=== PATIENT | female | born 1995 | race Caucasian/White ===

== ENCOUNTER → 2018-05-04 22:11 | Observation (INO) ==
[2018-05-04 21:51] LABS: Basophils % 0.1 %; Eosinophils % 0.3 %; Hematocrit 40.3 % (35.3-44.9); Hemoglobin 13.5 g/dL (11.5-15.4); Immature Granulocytes % 0.4 % (0-4); Lymphocytes # 1.1 K/mcL (0.6-4.6); Lymphocytes % 7.8 %; Mean Corpuscular HGB Conc 33.5 g/dL (31.6-35.5); Mean Corpuscular Volume 89.6 fL (83.0-100.0); Mean Platelet Volume 11.6 fL (9.4-12.4); Monocytes # 0.7 K/mcL (0.0-1.3); Monocytes % 5.3 %; Neutrophils # 12.1 K/mcL (1.6-8.9); Platelet Count 180 K/mcL (140-400); Red Cell Distribution Width 12.4 % (11.5-14.5); Segmented Neutrophils % 86.1 %
[2018-05-04 21:56] LABS: Amphetamine Screen,Urine Negative ng/mL (Cutoff=1000); Barbiturate Screen,Urine Negative ng/mL (Cutoff=200); Benzodiazepines Screen,Urine Negative ng/mL (Cutoff=200); Cannabinoid Screen,Urine Negative ng/mL (Cutoff = 50); Cocaine Screen,Urine Negative ng/mL (Cutoff= 300); Opiate Screen,Urine Negative ng/mL (Cutoff=300); Phencyclidine Screen,Urine Negative ng/mL (Cutoff=25); Protein/Creatinine Ratio,Urine 0.15 mg/mg (0.00-0.20)
[2018-05-04 22:00] LABS: Alanine Aminotransferase 10 Units/L (7-52); Aspartate Amino Transferase 16 Units/L (13-39); BUN/Creatinine Ratio 26 (6-26); Blood Urea Nitrogen 12 mg/dL (6-20); Lactate Dehydrogenase 166 Units/L (140-271); Uric Acid 4.7 mg/dL (2.3-7.6); eGFR For Non-African Americans > 60 (> 60)
--- NOTE | 2018-05-04 22:09 | Discharge Summary ---
Date of Encounter: 05/04/18 Time of Encounter: 22:10 - Discharge Diagnosis (1) 37 weeks gestation of Priority: Primary Status: Acute Comments: Admitted to OBS for evaluation of elevated blood pressure. (2) NST (non-stress test) reactive Priority: Secondary Status: Acute Comments: FHR 150 bpm, moderate variability, +15x15 accels, no decels. (3) Hypertension affecting in third trimester Priority: Secondary Status: Acute Comments: BP initially 133/93 and 134/93. BP decreased to 135/83, 131/83 with patient sitting straight up in bed. PIH labs all WNL, Protein/creatinine ratio 0.15. To follow up with Dr. Maxwell as scheduled tomorrow, 05/05/18 at 3:00 pm. - Discharge Medications Home Medications: Vits96/Iron Fum/Folic [ Tablet] 1 each PO DAILY 05/04/18 [ History] Allergies/Adverse Reactions: 3 Allergy/AdvReac Type Severity Reaction Status Date / Time No Known Allergies Allergy Verified 05/04/18 21:04 Data Procedures and tests throughout hospitalization: Laboratory Tests 05/04/18 05/04/18 05/04/18 21:17 21:17 21:17 WBC 14.1 H RBC 4.50 Hgb 13.5 Hct 40.3 MCV 89.6 MCH 30.0 MCHC 33.5 RDW 12.4 Plt Count 180 MPV 11.6 Immature Gran % 0.4 Seg Neutrophils % 86.1 Lymphocytes % 7.8 Monocytes % 5.3 Eosinophils % 0.3 Basophils % 0.1 Neutrophils # 12.1 H Lymphocytes # 1.1 Monocytes # 0.7 Eosinophils # 0.0 Basophils # 0.0 BUN 12 Creatinine 0.47 L Est GFR ( Amer) > 60 Est GFR (Non-Af Amer) > 60 BUN/Creatinine Ratio 26 Uric Acid 4.7 AST 16 ALT 10 Lactate Dehydrogenase 166 Urine Creatinine 127 Protein/Creatinin Ratio 0.15 Urine Total Protein 19 H Urine Opiates Screen Ur Barbiturates Screen Ur Phencyclidine Scrn Ur Amphetamines Screen U Benzodiazepines Scrn Urine Cocaine Screen U Marijuana (THC) Screen Ur Drug Screen Interp 05/04/18 21:17 WBC RBC Hgb Hct MCV MCH MCHC RDW Plt Count MPV Immature Gran % Seg Neutrophils % Lymphocytes % Monocytes % Eosinophils % Basophils % Neutrophils # Lymphocytes # Monocytes # Eosinophils # Basophils # BUN Creatinine Est GFR ( Amer) Est GFR (Non-Af Amer) BUN/Creatinine Ratio Uric Acid AST ALT Lactate Dehydrogenase Urine Creatinine Protein/Creatinin Ratio Urine Total Protein Urine Opiates Screen Negative Ur Barbiturates Screen Negative Ur Phencyclidine Scrn Negative Ur Amphetamines Screen Negative U Benzodiazepines Scrn Negative Urine Cocaine Screen Negative U Marijuana (THC) Screen Negative Ur Drug Screen Interp See Below Labs on day of discharge: Labs from last 24 hours 05/04/18 05/04/18 05/04/18 21:17 21:17 21:17 WBC 14.1 H RBC 4.50 Hgb 13.5 Hct 40.3 MCV 89.6 MCH 30.0 MCHC 33.5 RDW 12.4 Plt Count 180 MPV 11.6 Immature Gran % 0.4 Seg Neutrophils % 86.1 Lymphocytes % 7.8 Monocytes % 5.3 Eosinophils % 0.3 Basophils % 0.1 Neutrophils # 12.1 H Lymphocytes # 1.1 Monocytes # 0.7 Eosinophils # 0.0 Basophils # 0.0 BUN 12 Creatinine 0.47 L Est GFR ( Amer) > 60 Est GFR (Non-Af Amer) > 60 BUN/Creatinine Ratio 26 Uric Acid 4.7 AST 16 ALT 10 Lactate Dehydrogenase 166 Urine Creatinine Protein/Creatinin Ratio Urine Total Protein Urine Opiates Screen Negative Ur Barbiturates Screen Negative Ur Phencyclidine Scrn Negative Ur Amphetamines Screen Negative U Benzodiazepines Scrn Negative Urine Cocaine Screen Negative U Marijuana (THC) Screen Negative Ur Drug Screen Interp See Below 05/04/18 21:17 WBC RBC Hgb Hct MCV MCH MCHC RDW Plt Count MPV Immature Gran % Seg Neutrophils % Lymphocytes % Monocytes % Eosinophils % Basophils % Neutrophils # Lymphocytes # Monocytes # Eosinophils # Basophils # BUN Creatinine Est GFR ( Amer) Est GFR (Non-Af Amer) BUN/Creatinine Ratio Uric Acid AST ALT Lactate Dehydrogenase Urine Creatinine 127 Protein/Creatinin Ratio 0.15 Urine Total Protein 19 H Urine Opiates Screen Ur Barbiturates Screen Ur Phencyclidine Scrn Ur Amphetamines Screen U Benzodiazepines Scrn Urine Cocaine Screen U Marijuana (THC) Screen Ur Drug Screen Interp Date of admission: 05/04/18 20:54 Discharging clinician: Milagros Brown Anticipated date of discharge: 05/04/18 - Patient Status Disposition: Home, Self-Care Condition: Good Functional capacity at discharge: independent ambulation Overall status at discharge: patient is back to baseline - Discharge Instructions Follow Up With: Bola Maxwell MD [Partnered Physician] - - Diet and Activity Activity: resume usual activities as tolerated Diet: regular diet Hospital Course [employer] Hospital course: Ayah is a 22 year-old at 37.3 weeks who presented to L&D with elevated blood pressures on her home monitor. States she spoke with Dr. Maxwell over the phone and he encouraged her to come in for evaluation. Labs were obtained and all returned WNL. Patient reports positive movement, denies vaginal bleeding and leakage of fluid. Reports frontal headache x 1 week, unrelieved by Tylenol. Reflexes 2+ bilat., no epigastric pain, no visual changes. Reactive NST and normal BP at time of discharge. To follow up with Dr. Maxwell tomorrow as scheduled. Time Attestation: Total time spent providing and/or coordinating discharge services: Time Spent: Less than 30 minutes Exam - Constitutional General appearance IM: A&O X 3, no acute distress - Respiratory Respiratory exam: Present: CTAB - Cardiovascular Cardiovascular exam IM: Present: RRR, +S1, +S2 - GI/Abdominal GI/Abdominal exam IM: normal bowel sounds, soft - Extremities Exam Extremities exam IM: Present: full ROM, normal capillary refill, normal inspection - Neurological Exam Neurological exam: alert, oriented X3, reflexes normal - VTE Reasons for not Prescribing Prophylaxis: Treatment not Indicated - Low risk for VTE
== END | disposition home or self-care (01) ==
LOC: 1NENULAB
PROVIDERS: ADMIT Registered Nurse; ATTEND Registered Nurse

== ENCOUNTER 2018-05-20 03:50 | Observation (INO) ==
[2018-05-20 04:36] LABS: Amphetamine Screen,Urine Negative ng/mL (Cutoff=1000); Barbiturate Screen,Urine Negative ng/mL (Cutoff=200); Benzodiazepines Screen,Urine Negative ng/mL (Cutoff=200); Cannabinoid Screen,Urine Negative ng/mL (Cutoff = 50); Cocaine Screen,Urine Negative ng/mL (Cutoff= 300); Opiate Screen,Urine Negative ng/mL (Cutoff=300); Phencyclidine Screen,Urine Negative ng/mL (Cutoff=25)
[2018-05-20] MEDS ORDERED: HydrOXYzine 100 MG/2 ML VIAL IM ONE (05:06)
[2018-05-20] MEDS ORDERED: *HR* Nalbuphine 10 MG/ML AMPUL IM ONE (05:10)
--- NOTE | 2018-05-20 06:30 | OB/GYN Progress Note ---
Date of Encounter: 05/20/18 Time of Encounter: 05:00 - Assessment and Plan (1) 39 weeks gestation of Status: Acute NST reactive Nubain IM for therapeutic rest - patient has driver guard to take her home Discharge home with labor precautions Follow up for scheduled IOL on Wednesday and PRN (2) Uterine contractions during Status: Acute (3) NST (non-stress test) reactive Status: Acute Subjective - Subjective Principal diagnosis: contractions Interval history: Ms Wilson was assessed by the nurses. She is a in her 39th week of that presents to triage with c/o contractions that began overnight last night and have progressively worsened. She states positive movement. She denies headache, vision changes, epigastric pain, leaking of fluid, vaginal bleeding, and vaginal discharge. She states positive movement. Antepartum ROS: movement normal, contractions Objective - Vital Signs Vital Signs: Intake and Output 05/19/18 05/19/18 05/20/18 15:59 23:59 07:59 Other: Weight 74.8 kg Patient Weight 05/20/18 23:59 Weight 74.8 kg - Exam FHR: auscultation normal, category 1
== END 2018-05-20 05:52 | disposition home or self-care (01) ==
LOC: 1NENULAB
PROVIDERS: ADMIT Advanced Practice Midwife; ATTEND Advanced Practice Midwife

== ENCOUNTER 2018-05-20 23:42 | Inpatient (IN) ==
[2018-05-20] MEDS ORDERED: Ringers Solution, Lactated 1,000 ML ONE (23:44)
[2018-05-20] MEDS ORDERED: Oxytocin 20 units/ LR 1000 mL 20 UNIT/1,000 ML BAG IVC ONE (23:44)
[2018-05-20] MEDS ORDERED: Metoclopramide 10 MG/2 ML VIAL IVP PRN (23:45)
[2018-05-20] MEDS ORDERED: Ondansetron 4 MG/2 ML VIAL IVP PRN (23:45)
[2018-05-20] MEDS ORDERED: Naloxone 0.4 MG/ML INJ IVP PRN (23:45)
[2018-05-20] MEDS ORDERED: Lidocaine 1% 20 ML MDV ID PRN (23:45)
[2018-05-20] MEDS ORDERED: Ringers Solution, Lactated 1,000 ML IVC SCH (23:45)
[2018-05-20] MEDS ORDERED: *HR* Nalbuphine 10 MG/ML AMPUL IVP PRN (23:45)
[2018-05-20] MEDS ORDERED: Famotidine 20 MG/2 ML VIAL IVP PRN (23:45)
[2018-05-21 00:11] LABS: Basophils % 0.1 %; Eosinophils % 0.1 %; Hematocrit 43.8 % (35.3-44.9); Hemoglobin 14.7 g/dL (11.5-15.4); Immature Granulocytes % 1.3 % (0-4); Lymphocytes # 1.1 K/mcL (0.6-4.6); Lymphocytes % 7.5 %; Mean Corpuscular HGB Conc 33.6 g/dL (31.6-35.5); Mean Corpuscular Hemoglobin 29.5 pg (28.0-33.3); Mean Corpuscular Volume 87.8 fL (83.0-100.0); Mean Platelet Volume 11.6 fL (9.4-12.4); Monocytes # 0.8 K/mcL (0.0-1.3); Monocytes % 5.4 %; Neutrophils # 12.3 K/mcL (1.6-8.9); Platelet Count 225 K/mcL (140-400); Red Blood Count 4.99 M/mcL (3.82-4.97); Red Cell Distribution Width 12.7 % (11.5-14.5); Segmented Neutrophils % 85.6 %
--- NOTE | 2018-05-21 00:44 | Anesthesia Evaluation PreOp ---
Addendum entered and electronically signed by Prakash Naylor CRNA 05/25/18 09:26: Addendum entered and electronically signed by Cammie Ryan CRNA 05/21/18 10:39: Infant Delivery Date: 05/21/18 Infant Delivery Time: 10:03 Original Note: Date of Encounter: 05/21/18 Time of Encounter: 00:42 - Past History Planned Operation: sara Cardiac History: Denies any Significant Hx Pulmonary History: Denies Any Significant HX, Former smoker SALES DEVELOPMENT MANAGER History: Denies Any Significant HX Other Medical History: GERD Anesthesia History: No Prior Anesthetic Complications, Past Anesthesia (knee x 3) : Yes Test: Positive Alcohol Use: none Drug use: none Medications and Allergies Vits96/Iron Fum/Folic [ Tablet] 1 each PO DAILY 05/04/18 [History] Acetaminophen [Tylenol 8 Hour] 1 tab PO PRN 05/20/18 [History] Allergy/AdvReac Type Severity Reaction Status Date / Time No Known Allergies Allergy Verified 05/20/18 23:21 - Meds/Allergy Pre-op Review Medications Reviewed: Yes Allergies Reviewed: Yes Beta Blockers on Current Med List: No Anesthesia Results - Labs 05/20/18 23:48 Anesthesia Exam 147/71 fht 149 Height: 5'6" Weight: 160 NPO (# of Hours): 3 Pain Scale: 8 Pain Scale Used: Numeric (1 - 10) - HEENT Pupil (Motor): Pupils equal Mallampati: II Teeth: Normal Oral Opening: Greater than 3 - SALES DEVELOPMENT MANAGER LOC: Oriented SALES DEVELOPMENT MANAGER Motor: Normal RUE, Normal LUE, Normal RLE, Normal LLE, Normal Face SALES DEVELOPMENT MANAGER Sensory: Normal: RUE, LUE, RLE, LLE, Face - Cardiac Rhythm: Regular Murmur: None - Pulmonary Breath Sounds: bilateral Clear Respiratory Effort: Symmetrical Anesthesia Assess/Plan ASA Score: 2 Level of consciousness: Cooperative Anesthetic Plan: Epidural Monitoring Plan: Standard Monitors Recovery Plan: Other (risks discussed questions answered, consented)
[2018-05-21] MEDS ORDERED: Epidural Premix (fent/bupiv) 110 ML EP SCH (00:45)
[2018-05-21] MEDS ORDERED: *HR* Ropivacaine/PF 0.2% 20 ML VIAL EP ONE (00:45)
[2018-05-21] MEDS ORDERED: *HR* FentaNYL (PF) 100 MCG/2 ML VIAL EP ONE (00:45)
[2018-05-21] MEDS ORDERED: Lidocaine -MPF 2% 5 ML VIAL ONE (00:47)
[2018-05-21] MEDS ORDERED: *HR* FentaNYL (PF) 100 MCG/2 ML VIAL ONE (00:47)
[2018-05-21] MEDS ORDERED: *HR* Ropivacaine/PF 0.2% 20 ML VIAL ONE (00:47)
--- NOTE | 2018-05-21 01:17 | Anesthesia Procedures ---
Date of Encounter: 05/21/18 Time of Encounter: 01:14 Procedures: Anesthesia - Epidural/Spinal Patient ID/Chart reviewed: Yes Patient examined: Yes OB Eval: Gestational age: 39 OB Eval: : 1 OB Eval: Hx Para: 0 OB Eval: Dilated at (cm): 8 OB Eval: Contractions: Non-stressed pattern Consent Obtained: Yes Supplemental Oxygen: None/Room Air Site Prep: Aseptic Technique, Sterile prep and drape, 0.5% Chlorhexidine/Alcohol Patient position: upright Local Anesthetic: Lidocaine 1% Amount of Local Anesthetic used: 3 Touhy Needle Gauge: 18 Touhy Needle Depth (cm): 7 Catheter Depth at Skin (cm): 15 Test Dose (1.5% Lido + Epi): Volume given (mls): 3 Test Dose Result: Negative Loading Dose: Fentanyl (mcg): 100 Loading Dose: Other: rop 0.2% 10cc Loading Dose Administered: Thru Touhy Needle Infusion Med: 0.125% Bupivacaine w/ 2 mcg/ml Fentanyl Infusion Rate (mls/hr): 15 (pcea 5 cc q30") Catheter Secured in Place: Tegaderm Interspace Used: L2-L3 Loss of Resistance (HARISH): Yes Blood: No CSF: No Paresthesia: No Procedure: aseptic, shanell well, VSS, effective Vitals + FHT's: 124/86 66 fht 144
[2018-05-21] MEDS ORDERED: EPHEDrine 50 MG/ML VIAL ONE (01:20)
--- NOTE | 2018-05-21 02:12 | OB/GYN History & Physical ---
Date of Encounter: 05/21/18 Time of Encounter: 02:10 Assessment and Plan (1) 39 weeks gestation of Current visit: No Status: Acute NST reactive, FHR baseline 140bpm. Admit for labor. Anticipate . History of Present Illness Chief complaint: Contractions HPI: Ms. Wilson is a 22 year old female presenting at 39w6d with contractions. She denies VB, LOF. Reports good FM. A Positive GBS negative Rubella Immune Serologies negative Past Med Surg Social Fam HX - Past Medical History Medical history: no medical history Psychiatric history: anxiety - Past Surgical History Surgical History: other Additional surgical history: right knee surgery - Social History Smoking Status: Former smoker Smokeless Tobacco Status: No Alcohol use: none Drug use: none - Family History Maternal Grandmother Adopted: No Family Member Ethnicity: Non- Living Status: Still Living Hx Family Cardiac Disorders: No Hx Family Respiratory Disorders: No Hx Family Cancer: No Hx Family GI Disorders: No Hx Family Genitourinary Disorders: No Hx Family Endocrine Disorder: Yes Hx Family Musculoskeletal Disorders: No Hx Family Neuromuscular Disorders: No Hx Family Neurologic Disorders: No Hx Family HEENT Disorders: No Hx Family Autoimmune Disorders: No Hx Family Reproductive Disorders: No Hx Family Psychosocial Disorders: No Hx Family Medical Disorders: No Obstetrical History - Pregnancies : 1 Para: 0 Medications and Allergies Vits96/Iron Fum/Folic [ Tablet] 1 each PO DAILY 05/04/18 [History] Acetaminophen [Tylenol 8 Hour] 1 tab PO PRN 05/20/18 [History] Allergy/AdvReac Type Severity Reaction Status Date / Time No Known Allergies Allergy Verified 05/20/18 23:21 Review of System OB All systems PM: reviewed and no additional remarkable complaints except as stated Exam - Constitutional Constitutional: well developed, well nourished, no acute distress, average body habitus - HEENT HEENT: Mucus Membranes Moist - Lungs Respiratory exam: CTAB - Cardiovascular Cardiovascular exam: RRR, +S1, +S2 - Breasts Breast: bilateral: normal - Abdomen Abdomen: Present: bowel sounds normal, gravid, non tender - Extremities Extremities exam: normal inspection - Vagina Vagina: Present: normal moisture - Cervix Dilation: 8 (per RN ) Results Result Diagrams: 05/20/18 23:48 Abnormal lab results WBC 14.4 K/mcL (4.3-11.1) H 05/20/18 23:48 RBC 4.99 M/mcL (3.82-4.97) H 05/20/18 23:48 Neutrophils # 12.3 K/mcL (1.6-8.9) H 05/20/18 23:48 All other labs normal.
--- NOTE | 2018-05-21 02:28 | OB Labor Progress Note ---
Date of Encounter: 05/21/18 Time of Encounter: 02:26 Labor Progress Note - Subjective Subjective: Pt comfortable with epidural in place. - Cervix Cervix: 9/100%/0 - Heart Tones Heart Tones: NST reactive, FHR 140bpm - Interventions Interventions: AROM of small amount of clear fluid. - Plan Plan: Anticipate .
[2018-05-21] MEDS ORDERED: Oxytocin 20 units/ LR 1000 mL 20 UNIT/1,000 ML BAG IVC SCH ×2 (04:30→12:55)
--- NOTE | 2018-05-21 08:14 | OB Labor Progress Note ---
Date of Encounter: 05/21/18 Time of Encounter: 08:11 Labor Progress Note - Subjective Subjective: Pt resting comfortably in bed after epidural placement. States she is feeling pressure with contractions but no pain. - Cervix Cervix: Completely dilated vertex at +1 station. - Heart Tones Heart Tones: 160 bpm, moderate variability, no accels, early decelerations - [place]: Every 2-4 minutes. Currently on 2 milliunits of Pitocin. - Interventions Interventions: SVE. Attempted pushing with patient. Poor maternal pushing effort, discussed laboring down. Patient agrees with plan to labor down. - Plan Plan: Continue Pitocin augmentation. Reposition patient frequently with peanut ball Attempt pushing again at approximately 30 minutes.
--- NOTE | 2018-05-21 10:26 | OB/GYN Procedure Note ---
Delivery - Delivery Date: 05/21/18 Provider: Milagros Brown (Tiara Low present for proctoring) Intrapartum events: prolonged 2nd stage>2.5hr Delivery induction: none Delivery augmentation: pitocin Delivery monitor: external FHT, external uterine Anesthesia: epidural Quantitated Blood Loss: 100 - (s) A Delivery Date: 05/21/18 Delivery Time: 10:03 Presentation: vertex Position: REGINA Route of delivery: Gender: Female Viability: Viable Weight Gram: 2995 kg at 1 minute: 8 at 5 mins: 9 Shoulder Dystocia: not encountered Specimens collected: cord blood Placenta: spontaneous Cord: 3 umbilical vessels - Repair Episiotomy: none Laceration Description: Periurethral (bilateral) - Complications Delivery complications: none Delivery comments: Called to room for delivery. Under maternal effort, spontaneous delivery of viable female infant over intact perineum. placed on maternal abdomen for drying and stimulation. Cord clamped and cut after pulsation ceased. Cord blood obtained. Bilateral periurethral lacerations noted. All were hemostatic and therefore not repaired. Spontaneous delivery of intact placenta. Noted a small accessory lobe on placenta. EBL 100 mL's. No nuchal cord, shoulder dystocia, or meconium encountered. Mother and infant in kangaroo care for [address] Low at bedside for entirety of delivery for proctoring. - Disposition Mom disposition: stable in LDR [place] disposition: stable in LDR - Comments Comments: I was gloved for the delivery of the infant and placenta. Bilateral labial lacerations were hemostatic without repair. Park Low DO
[2018-05-21] MEDS ORDERED: Benzocaine/Menthol 56 GM AEROSOL SPRAY TP PRN (12:55)
[2018-05-21] MEDS ORDERED: Measles/Mumps/Rubella Vacc 0.5 ML VIAL SQ PRN (12:55)
[2018-05-21] MEDS ORDERED: Lanolin 7 G OINT...G. TP PRN (12:55)
[2018-05-21] MEDS ORDERED: Acetaminophen 325 MG TABLET PO PRN (12:55)
[2018-05-21] MEDS: Ibuprofen 600 MG TABLET PO PRN (13:28)
[2018-05-22 07:54] VITALS: BP 114/74
[2018-05-22] MEDS: Ibuprofen 600 MG TABLET PO PRN (07:56)
[2018-05-22] MEDS ORDERED: Prenatal Vit/FA 1 EACH TABLET PO SCH (09:00)
[2018-05-22] MEDS ORDERED: Etonogestrel 68 MG IMPLANT IL ONE (09:58)
[2018-05-22] MEDS ORDERED: Lidocaine -MPF 1% 5 ML AMPUL INFILT ONE (09:59)
[2018-05-22] MEDS ORDERED: Lidocaine -MPF 1% 5 ML AMPUL ONE (10:17)
--- NOTE | 2018-05-22 10:46 | Discharge Summary ---
Date of Encounter: 05/22/18 Time of Encounter: 10:43 - Discharge Diagnosis (1) Vaginal delivery Priority: Primary Status: Acute Comments: continue routine care discharge home today follow up with Dr. Maxwell in 4-6 weeks (2) Breast feeding status of mother Priority: Secondary Status: Acute Comments: support prn (3) Contraception Priority: Secondary Status: Acute Comments: Patient requests Nexplanon for control during admission questions Consent for Nexplanon reviewed with patient and signed prior to placement Qualifiers: Contraceptive encounter type: initial prescription Contraceptive type: implantable subdermal Qualified Code(s): Z30.017 - Encounter for initial prescription of implantable subdermal contraceptive - Discharge Medications Prescriptions: Ibuprofen [Motrin] 600 mg PO Q6HR PRN #60 tablet PRN Reason: Cramping Home Medications: Vits96/Iron Fum/Folic [ Tablet] 1 each PO DAILY 05/04/18 [History] Ibuprofen [Motrin] 600 mg PO Q6HR PRN #60 tablet 05/22/18 [Rx] Lanolin [Lansinoh] 1 appl TP TID PRN oint...g. 05/22/18 [Rx] Allergies/Adverse Reactions: Allergy/AdvReac Type Severity Reaction Status Date / Time No Known Allergies Allergy Verified 05/20/18 23:21 Data Procedures and tests throughout hospitalization: Laboratory Tests 05/20/18 23:48 WBC 14.4 H RBC 4.99 H Hgb 14.7 Hct 43.8 MCV 87.8 MCH 29.5 MCHC 33.6 RDW 12.7 Plt Count 225 MPV 11.6 Immature Gran % 1.3 Seg Neutrophils % 85.6 Lymphocytes % 7.5 Monocytes % 5.4 Eosinophils % 0.1 Basophils % 0.1 Neutrophils # 12.3 H Lymphocytes # 1.1 Monocytes # 0.8 Eosinophils # 0.0 Basophils # 0.0 Date of admission: 05/20/18 23:45 Consults: 05/21/18 12:55 Consult to [employer] Fireman [CONS] Routine Comment: Vaginal delivery, consult needed Discharging clinician: Faviola Murphy Anticipated date of discharge: 05/22/18 - Patient Status Disposition: Home, Self-Care Condition: Good Functional capacity at discharge: independent ambulation - Discharge Instructions Follow Up With: Bola Maxwell MD [Partnered Physician] - - Diet and Activity Activity: increase activity as tolerated Diet: other Hospital Course Reason for admission: active labor Delivery: Episiotomy: none Laceration: none Other procedures: none complications: none Discharge diagnosis: IUP at term delivered baby: female (breast feeding) Hospital course: Nexplanon placed in right arm due to patient being left handed. Informed consent was obtained and time out performed. Patient was placed in the supine position with right arm in appropriate position. Betadine was used to prep arm in sterile fashion. 1% lidocaine was used to anesthetize. The Nexplanon was inserted in the subcutaneous tissue to the appropriate length then the Nexplanon was released. Both myself and patient can palpate the gely without difficulty. Steri-strips and pressure dressing was applied. Patient tolerated the procedure well. Patient was instructed on wound care and follow up prn. Time Attestation: Total time spent providing and/or coordinating discharge services: Time Spent: Less than 30 minutes Exam - Constitutional Vitals: Temp Pulse Resp BP Pulse Ox 98.3 F 69 16 114/74 99 05/22/18 07:53 05/22/18 07:53 05/22/18 07:53 05/22/18 07:53 05/22/18 01:51 EST General appearance IM: A&O X 3, pleasant, answers questions appropriately - Respiratory Respiratory exam: Present: CTAB - Cardiovascular Cardiovascular exam IM: Present: RRR, +S1, +S2 - GI/Abdominal GI/Abdominal exam IM: normal bowel sounds - Uterine Tone: Firm Uterus Position: At Umbilicus, Midline - Extremities Exam Extremities exam IM: Present: full ROM, normal capillary refill, normal inspection - Neurological Exam Neurological exam: alert, oriented X3, reflexes normal
== END 2018-05-22 12:05 | disposition home or self-care (01) | DRG 807 ==
LOC: 1NENULAB → 1NENUOBS 05-21 12:53
PROVIDERS: ADMIT Registered Nurse; ATTEND Registered Nurse